=== PATIENT | female | born 1960 | race Caucasian/White ===

== ENCOUNTER → 2017-03-16 | Outpatient (CLI) | payer BC ==
[~2017-03-16] MED LIST: AMLO5TAB2 PO; CARV3.12 PO; DRON400T PO; LISI40TA PO; PRAV20TA2 PO; RIVA20TA2 PO; TOPI50TA38 PO
--- NOTE | 2017-03-17 08:22 | KCIC ---
EXAM: Brain MRI without contrast. HISTORY: Headaches. TECHNIQUE: Multiplanar, multisequence magnetic resonance imaging of the brain was performed without contrast. COMPARISON: 12/24/2012 FINDINGS: There is no restricted diffusion to suggest acute or subacute infarction. There is no susceptibility effect to suggest hemorrhage. There is no mass effect or midline shift. There is no hydrocephalus. There are scattered focal areas of T2/FLAIR hyperintensity within the cerebral white matter, a nonspecific finding. The orbits are unremarkable. There are tiny right maxillary sinus mucous retention cysts. The mastoid air cells are clear. There are normal flow voids within the cerebral vessels. IMPRESSION: 1. No acute intracranial finding. 2. Multiple nonspecific scattered focal areas of signal change within the cerebral white matter. This appears slightly increased compared to the prior study, a component of which may be due to differences in imaging technique. This is most commonly secondary to chronic small vessel disease in patients of this age. However, the the distribution and configuration of several lesions does not exclude or possibility of demyelinating disease. Electronically signed by: Grace Harvey MD (03/17/2017 8:18 AM)
== END | disposition home or self-care (01) ==
LOC: KCIC MRI 17:13
PROVIDERS: ATTEND Nurse Practitioner Adult Health
DX: I73.9 Peripheral vascular disease, unspecified (principal); R51 Headache; J45.909 Unspecified asthma, uncomplicated
CPT/HCPCS: 70551